=== PATIENT | female | born 1955 | race Caucasian/White ===

== ENCOUNTER 2021-04-07 08:19 | Emergency (ER) | payer MEDICARE, OTHER ==
[2021-04-07 09:34] LABS: BASOPHIL 0.3 % (0-2); EOSINOPHIL 0 % (0-7); HCT 41.2 % (37.0-47.0); HGB 13.4 g/dl (12.5-16.0); LYMPHOCYTE 17.1 % (15-48); MCH 30.9 pg (25.0-31.0); MCHC 32.5 g/dL (32.0-36.0); MCV 94.9 fL (78.0-100.0); MONOCYTE 5.6 % (0-12); MPV 10.9 fL (6.0-9.5); NEUTROPHIL 76.7 % (41-80); NRBC 0; PLT 170 K/uL (150-400); RBC 4.34 M/uL (4.20-5.40); RDW 14.4 % (11.5-14.0); WBC 3.4 K/uL (4.0-10.5)
[2021-04-07 09:56] LABS: BUN/CREAT RATIO (CALC) 6.7 RATIO; CREATININE 0.75 mg/dL (0.51-0.95); POTASSIUM 3.7 mmol/L (3.5-5.1)
[2021-04-07] MEDS ORDERED: ONDANSETRON ODT4 MG PO (10:06)
== END 2021-04-07 12:30 | disposition home or self-care (01) ==
LOC: FER 08:19
PROVIDERS: Internal Medicine
DX: U07.1 COVID-19 (principal); Z88.0 Allergy status to penicillin; Z88.2 Allergy status to sulfonamides; Z23 Encounter for immunization
CPT/HCPCS: 36415; 71045; 80048; 85025; J2550; J7030; M0243; Q0244; U0002